=== PATIENT | male | born 1980 ===

== ENCOUNTER → 2022-04-29 08:00 | Outpatient (CLI) | payer OTHER ==
[~2022-04-29] VITALS: Ht 175.3 cm; Wt 72.6 kg
== END | disposition home or self-care (01) ==
LOC: LAB 08:00 → ADM 12:30 → CIR.AMB 05-04 07:00 → EDSTATUS 05-04 12:30 → CIR.AMB 05-04 12:30
PROVIDERS: ATTEND Surgery
DX: R22.2 Localized swelling, mass and lump, trunk (principal)